=== PATIENT | female | born 2000 | race Hispanic/Latino ===

== ENCOUNTER 2022-12-04 21:07 | Emergency (ER) | payer OTHER ==
[~2022-12-04] VITALS: Ht 154.9 cm; Wt 63.5 kg
[2022-12-04 21:45] VITALS: O2SAT 100
== END 2022-12-04 23:00 | disposition home or self-care (01) ==
LOC: ER 21:12
DX: T52.0X1A Toxic effect of petroleum products, accidental (unintentional), initial encounter (principal); T75.89XA Other specified effects of external causes, initial encounter; R06.00 Dyspnea, unspecified
CPT/HCPCS: 99282